=== PATIENT | female | born 1985 | race Caucasian/White ===

== ENCOUNTER 2021-09-23 22:20 | Emergency (ER) | payer MEDICAID, OTHER ==
[~2021-09-23] VITALS: Ht 160 cm; Wt 48.0 kg
[2021-09-24] MEDS ORDERED: ACETAMINOPHEN 325MG TABLET PO PRN (04:45)
[2021-09-24] MEDS ORDERED: SODIUM CHLORIDE 0.9% 1,000 ML IV ONE (04:45)
[2021-09-24] MEDS ORDERED: NA PHOS,M-B/NA PHOS,DI-BA ENEMA 118ML PR ONE (05:00)
[2021-09-24 05:10] LABS: CLARITY URINE CLOUDY (CLEAR); COLOR URINE YELLOW (YELLOW); KETONES URINE 1+ (NEGATIVE); LEUKOCYTE ESTERASE URINE 1+ (NEGATIVE); NITRITE URINE NEGATIVE (NEGATIVE); OCCULT BLOOD URINE NEGATIVE (NEGATIVE); PH URINE 5.5 (4.5-8.0); PROTEIN URINE NEGATIVE (NEGATIVE); SPECIFIC GRAVITY URINE 1.009 (1.005-1.030)
[2021-09-24 05:27] LABS: CHLORIDE 105 mEq/L (98-107)
[2021-09-24 05:33] LABS: BASOPHILS % 0.2 % (0.0-2.0); EOSINOPHILS % 0.4 % (0.0-5.0); HEMATOCRIT. 34.5 % (36.0-48.0); HEMOGLOBIN. 12.1 g/dL (12.0-16.0); MEAN CORPUSCULAR VOLUME 82.4 fL (81.0-99.0); MEAN PLATELET VOLUME 8.3 fl (7.4-10.4); MONOCYTES % 5.2 % (2.0-8.0); NEUTROPHILS % 86.2 % (40.0-76.0); PLATELET 230 x1000/uL (130-400); PROTHROMBIN TIME 10.4 sec (9.6-11.0); RED BLOOD CELL COUNT 4.18 mill/uL (4.2-5.4); RED CELL DISTRIBUTION WIDTH 13.6 % (11.6-14.6)
[2021-09-24 05:50] LABS: B-HCG QUANTITATIVE 56209 mIU/mL (<3)
[2021-09-24] MEDS ORDERED: CEPH250C2 MT (07:45)
[2021-09-24] MEDS ORDERED: DOCU-155 MT (07:45)
[2021-09-24] MEDS ORDERED: POLY17PO3 MT (07:45)
[2021-09-24 08:09] VITALS: BP 102/76
== END 2021-09-24 08:11 | disposition home or self-care (01) ==
LOC: ER 22:20
DX: O26.891 Other specified pregnancy related conditions, first trimester (principal); Z3A.10 10 weeks gestation of pregnancy; Z98.890 Other specified postprocedural states
CPT/HCPCS: 36415; 76801; 76817; 80053; 81003; 81025; 84702; 85025; 85610; 86850; 86900; 86901; 96360; 99285; J7030